=== PATIENT | female | born 1980 | race Two or more races ===

== ENCOUNTER 2023-04-22 20:55 | Emergency (ER) | payer OTHER ==
--- NOTE | 2023-04-22 21:46 | ED Physician Documentation ---
PD HPI FEMALE - Stated complaint Stated Complaint: GI - Chief complaint Chief Complaint: Abd Pain - History obtained from History obtained from: Patient - History of Present Illness Timing - onset: Today Timing - duration: Days (1) Timing - details: Gradual onset Pain level max: 3 Pain level max: 3 Associated symptoms: Dysuria, Urinary frequency. No: Abdominal pain, Vaginal bleeding, Vaginal discharge - Additional information Additional information: Patient is a 43-year-old female who complains of dysuria and urinary frequency starting today. No vaginal bleeding or discharge. No abdominal pain. Does have some slight low back pain. Worse with urination, nothing makes it better. Has had similar symptoms previously and diagnosed with UTI. No blood in the urine. No upper back kidney or flank pain. Denies any possibility of . Review of Systems Constitutional: denies: Fever GI: denies: Vomiting, Diarrhea : reports: Dysuria, Frequency, Hesitancy. denies: Now EGA Skin: denies: Rash PD PAST MEDICAL HISTORY - Past Medical History Past Medical History: No - Past Surgical History Past Surgical History: No - Present Medications Home Medications: Ambulatory Orders Medication Instructions Recorded Confirmed Chlorhexidine Gluconate [Hibiclens] 10 ml TP DAILY #473 ml 01/07/15 Hydrocodone/Acetaminophen [[place] 1 each PO Q6H PRN #20 tablet 01/07/15 5-325 Tablet] Sulfamethoxazole/Trimethoprim 1 each PO BID #14 tablet 01/07/15 [Bactrim Ds Tablet] Nitrofurantoin [Macrobid] 100 mg PO BID #10 cap 04/22/23 Phenazopyridine HCl [Pyridium] 200 mg PO TID PRN #6 tablet 04/22/23 - Allergies Allergies/Adverse Reactions: Allergies Allergy/AdvReac Type Severity Reaction Status Date / Time No Known Drug Allergies Allergy Verified 01/07/15 17:52 - Living Situation Living Situation: reports: With family Living Arrangement: reports: At home - Social History Does the pt smoke?: No Smoking Status: Never smoker Does the pt drink ETOH?: Yes Does the pt have substance abuse?: No PD ED PE NORMAL - Vitals Vital signs reviewed: Yes - General General: Alert and oriented X 3, No acute distress - HEENT HEENT: Moist mucous membranes - Neck Neck: Supple, no meningeal sign - Respiratory Respiratory: No respiratory distress - Abdomen Abdomen: Soft, Non tender, Non distended - Back Back: No CVA TTP - Derm Derm: Warm and dry - Neuro Neuro: Alert and oriented X 3 - Psych Psych: Normal mood, Normal affect Results - Vitals Vitals: Vital Signs - 24 hr 04/22/23 04/22/23 04/22/23 21:00 21:22 22:21 Temperature 35.8 C L 36.6 C Heart Rate 69 69 68 Respiratory 16 16 16 Rate Blood Pressure 125/85 H 125/85 H 122/84 H O2 Saturation 99 100 100 Oxygen O2 Source Room air - Labs Labs: Laboratory Tests 04/22/23 21:34 Urine Color YELLOW Urine Clarity CLEAR Urine pH 6.0 Ur Specific [place] 1.020 Urine Protein NEGATIVE Urine Glucose (UA) NEGATIVE Urine Ketones NEGATIVE Urine Occult Blood NEGATIVE Urine Nitrite NEGATIVE Urine Bilirubin NEGATIVE Urine Urobilinogen 0.2 (NORMAL) Ur Leukocyte Esterase TRACE H Urine RBC 0-5 Urine WBC 6-10 H Ur Squamous Epith Cells FEW Squamous Urine Bacteria Rare Ur Microscopic Review INDICATED Urine Culture Comments INDICATED Urine HCG, Qual NEGATIVE PD Medical Decision Making - ED course Complexity details: reviewed results, considered differential, d/w patient ED course: 43-year-old female with what appears to be a UTI. Will place on Macrobid and Pyridium. No evidence of pyelonephritis, sepsis. Patient is very well- appearing, nontoxic. Afebrile. Tolerating p.o. without difficulty. Patient counseled regarding signs and symptoms for which I believe and urgent re- evaluation would be necessary. Patient with good understanding of and agreement to plan and is comfortable going home at this time This document was made in part using voice recognition software. While efforts are made to proofread this document, sound alike and grammatical errors may occur. Departure - Departure Disposition: Home, Self Care Clinical Impression: UTI (urinary tract infection) Qualifiers: Urinary tract infection type: acute cystitis Hematuria presence: without hematuria Qualified Code(s): N30.00 - Acute cystitis without hematuria Condition: Good Instructions: ED UTI Cystitis Female Follow-Up: your,doctor as needed [Other] Prescriptions: Nitrofurantoin [Macrobid] 100 mg PO BID #10 cap Phenazopyridine HCl [Pyridium] 200 mg PO TID PRN #6 tablet PRN Reason: dysuria Comments: [facility] [place]. Please take all antibiotics until gone. Please return if you worsen. Forms: PCP List
[2023-04-22 21:51] LABS: BILIRUBIN,URINE NEGATIVE (NEGATIVE); GLUCOSE, URINE (UA) NEGATIVE (NEGATIVE); KETONES,URINE (UA) NEGATIVE (NEGATIVE); LEUKOCYTE ESTERASE, URINE TRACE (NEGATIVE); NITRITE,URINE NEGATIVE (NEGATIVE); OCCULT BLOOD,URINE NEGATIVE (NEGATIVE); PROTEIN,URINE NEGATIVE (NEGATIVE); UROBILINOGEN,URINE 0.2 (NORMAL) E.U./dL (NORMAL)
[2023-04-22 21:52] LABS: CLARITY,URINE CLEAR (CLEAR); HCG UR QUAL NEGATIVE
[2023-04-22] MEDS ORDERED: NITROFURANTOIN MACRO 100 MG CAPSULE PO STA (21:56)
[2023-04-22] MEDS ORDERED: PHENAZOPYRIDINE 100 MG TABLET PO STA (21:56)
[2023-04-22 22:01] LABS: BACTERIA,URINE Rare /HPF (None Seen); RBC,URINE 0-5 /HPF (0-5); SQUAMOUS EPITHELIAL CELL,UR FEW Squamous (<= Few)
[2023-04-22 22:24] VITALS: BP 122/84; O2SAT 100
== END 2023-04-22 22:20 | disposition home or self-care (01) ==
LOC: ED 20:55
DX: N30.00 Acute cystitis without hematuria (principal)
CPT/HCPCS: 81001; 81025; 87086; 87181; 99283; A9270; 81003

== ENCOUNTER 2023-08-08 09:31 | Emergency (ER) | payer OTHER ==
[2023-08-08 09:41] VITALS: BP 129/80; O2SAT 100
--- NOTE | 2023-08-08 10:13 | ED Physician Documentation ---
PD HPI SKIN - Stated complaint Stated Complaint: POSS ALLERGIC RX - Chief complaint Chief Complaint: Allergic Rx - History obtained from History obtained from: Patient - Additional information Additional information: Patient is a 43-year-old female presenting for evaluation of rash to her face which has been present since when she woke up. She did use a new face serum on Tuesday. She has itchiness to the area. She has been using Benadryl and Zyrtec daily.She does wear make-up to the face but denies new make-up. No rash noted elsewhere. Denies difficulty breathing. Review of Systems Constitutional: denies: Fever Cardiac: denies: Chest pain / pressure Respiratory: denies: Dyspnea Skin: reports: Rash PD PAST MEDICAL HISTORY - Past Medical History Past Medical History: No - Past Surgical History Past Surgical History: No - Present Medications Home Medications: Ambulatory Orders Medication Instructions Recorded Confirmed Chlorhexidine Gluconate [Hibiclens] 10 ml TP DAILY #473 ml 01/07/15 Hydrocodone/Acetaminophen [[place] 1 each PO Q6H PRN #20 tablet 01/07/15 5-325 Tablet] Sulfamethoxazole/Trimethoprim 1 each PO BID #14 tablet 01/07/15 [Bactrim Ds Tablet] Nitrofurantoin [Macrobid] 100 mg PO BID #10 cap 04/22/23 Phenazopyridine HCl [Pyridium] 200 mg PO TID PRN #6 tablet 04/22/23 predniSONE [Deltasone] 60 mg PO DAILY 5 Days #15 tablet 08/08/23 - Allergies Allergies/Adverse Reactions: Allergies Allergy/AdvReac Type Severity Reaction Status Date / Time No Known Drug Allergies Allergy Verified 08/08/23 09:37 - Social History Does the pt smoke?: No Smoking Status: Never smoker Does the pt drink ETOH?: Yes Does the pt have substance abuse?: No - POLST Patient has POLST: No PD ED PE NORMAL - General General: Alert and oriented X 3, No acute distress, Well developed/nourished - HEENT HEENT: Atraumatic, PERRL, EOMI, Pharynx benign - Neck Neck: Supple, no meningeal sign - Cardiac Cardiac: RRR - Respiratory Respiratory: No respiratory distress, Clear bilaterally - Derm Derm: Other (Raised scaly erythema to bilateral periorbital regions as well as to forehead and down cheeks) Results - Vitals Vitals: Vital Signs - 24 hr 08/08/23 09:35 Temperature 36.4 C L Heart Rate 75 Respiratory 20 Rate Blood Pressure 129/80 O2 Saturation 100 Oxygen O2 Source Room air PD Medical Decision Making - ED course ED course: Patient evaluated for rash to the face that appears to be a contact dermatitis likely related to new face serum. She has been using antihistamines without significant improvement.Given areas around her eyes I would be hesitant to have her use topical hydrocortisone to these areas so we will trial a short course of p.o. prednisone.Will continue with antihistamines. Patient counseled to avoid this new face serum. She already uses Gentle cleanser and lotion from [employer]. Patient advised on concerning symptoms to return for. Departure - Departure Disposition: 01 Home, Self Care Clinical Impression: Allergic dermatitis Condition: Stable Instructions: ED Dermatitis Contact Prescriptions: predniSONE [Deltasone] 60 mg PO DAILY 5 Days #15 tablet Comments: Your rash appears to be from an allergic reaction. This is likely due to a chemical or product coming into contact with your skin such as the new serum you tried a few nights ago. Please do not use this serum again. I would recommend continuing with the Zyrtec daily as well as Benadryl at night for itching. I have also sent a prescription for short course of prednisone to [facility] in [place]. Return to the emergency department if you develop any worsening symptoms such as signs of infection, worsening rash, changes to vision. Forms: PCP List Discharge Date/Time: 08/08/23 10:26
== END 2023-08-08 10:26 | disposition home or self-care (01) ==
LOC: ED 09:31
DX: L23.9 Allergic contact dermatitis, unspecified cause (principal)
CPT/HCPCS: 99282; 99283

== ENCOUNTER 2023-10-07 21:09 | Emergency (ER) | payer OTHER ==
[2023-10-07 21:42] VITALS: BP 102/67; O2SAT 98
--- NOTE | 2023-10-07 22:27 | ED Physician Documentation ---
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 Denies fever, nausea vomiting, abdominal pain chest pain shortness of breath. PD PAST MEDICAL HISTORY - Past Surgical History Past Surgical History: No - Present Medications Home Medications: Ambulatory Orders Medication Instructions Recorded Confirmed Chlorhexidine Gluconate [Hibiclens] 10 ml TP DAILY #473 ml 01/07/15 Hydrocodone/Acetaminophen [[place] 1 each PO Q6H PRN #20 tablet 01/07/15 5-325 Tablet] Sulfamethoxazole/Trimethoprim 1 each PO BID #14 tablet 01/07/15 [Bactrim Ds Tablet] Nitrofurantoin [Macrobid] 100 mg PO BID #10 cap 04/22/23 Phenazopyridine HCl [Pyridium] 200 mg PO TID PRN #6 tablet 04/22/23 predniSONE [Deltasone] 60 mg PO DAILY 5 Days #15 tablet 08/08/23 predniSONE [Prednisone 21-TAB dose 60 mg PO QDAC 6 Days #21 tab 10/07/23 pack] - Allergies Allergies/Adverse Reactions: Allergies Allergy/AdvReac Type Severity Reaction Status Date / Time No Known Drug Allergies Allergy Verified 10/07/23 21:24 - Social History Does the pt smoke?: No Smoking Status: Never smoker Does the pt drink ETOH?: Yes Does the pt have substance abuse?: No - POLST Patient has POLST: No PD ED PE NORMAL - Vitals Vital signs reviewed: Yes - General General: Alert and oriented X 3, No acute distress, Well developed/nourished - HEENT HEENT: Atraumatic, PERRL, EOMI, Moist mucous membranes, Pharynx benign, Other (Eczematous rash to periorbital area.) - Neck Neck: Supple, no meningeal sign - Cardiac Cardiac: RRR - Respiratory Respiratory: No respiratory distress, Clear bilaterally - Abdomen Abdomen: Non tender, Non distended Results - Vitals Vitals: Vital Signs - 24 hr 07/05/24 21:24 Temperature 36.4 C L Heart Rate 89 Respiratory 16 Rate Blood Pressure 102/67 O2 Saturation 98 Oxygen O2 Source Room air PD Medical Decision Making - ED course ED course: 43-year-old woman presents with allergic reaction, treated with Benadryl and steroids and prescription sent to pharmacy. Plan to follow-up outpatient with primary care provider for referral to allergy and immunology. Return precautions given. Departure - Departure Disposition: 01 Home, Self Care Clinical Impression: Allergic reaction Condition: Stable Instructions: ED Allergic Reaction General Other Prescriptions: predniSONE [Prednisone 21-TAB dose pack] 60 mg PO QDAC 6 Days #21 tab Comments: You were seen in the emergency department for medical evaluation. Steroids sent to [facility]. Please follow-up with your primary care provider and return to the emergency department if you have any new or worsening symptoms or other concerns.
[2023-10-07] MEDS: diphenhydrAMINE 25 MG CAPSULE PO STA (22:29)
[2023-10-07] MEDS: CHERRY SYRUP 10 ML UDC PO ONE (22:29)
[2023-10-07] MEDS: DEXAMETHASONE 10 MG/ML VIAL PO STA (22:29)
== END 2023-10-07 22:42 | disposition home or self-care (01) ==
LOC: ED 21:09
DX: T78.40XA Allergy, unspecified, initial encounter (principal); R51.9 Headache, unspecified; J02.9 Acute pharyngitis, unspecified; R21 Rash and other nonspecific skin eruption; H93.8X3 Other specified disorders of ear, bilateral; L29.8 Other pruritus
CPT/HCPCS: 99283; A9270

== ENCOUNTER 2023-11-21 20:20 | Emergency (ER) | payer OTHER ==
--- NOTE | 2023-11-21 20:47 | ED Physician Documentation ---
History of Present Illness - Stated complaint Stated Complaint: ALLERGIC REACTION - Chief complaint Chief Complaint: Allergic Rx - History obtained from History obtained from: Patient - Additonal information Additional information: Patient is a 43-year-old female presenting to the emergency department with swelling around the bilateral eyes. Patient notes symptoms started on Tuesday and have been persistent till today. She notes it is worse in the morning and improves at night. Patient took Benadryl earlier with no significant relief. Patient notes similar episode happened about a month ago and she came to the emergency department was started on steroid taper and finished this. She notes symptoms improved and she saw her PCP who gave her a referral to an medical record specialist that she has been unable to follow-up with at this time. Patient previously was taking Zyrtec daily but has stopped taking this medication. She notes no acute allergies no new face washes no new detergents. She denies any significant pruritus around her eyes no discharge or redness. No vision changes. She denies any rash or hives associated with symptoms. She denies any history of allergies. She has not taken any new medications. 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 - Present Medications Home Medications: Ambulatory Orders Medication Instructions Recorded Confirmed Chlorhexidine Gluconate [Hibiclens] 10 ml TP DAILY #473 ml 01/07/15 Hydrocodone/Acetaminophen [[place] 1 each PO Q6H PRN #20 tablet 01/07/15 5-325 Tablet] Sulfamethoxazole/Trimethoprim 1 each PO BID #14 tablet 01/07/15 [Bactrim Ds Tablet] Nitrofurantoin [Macrobid] 100 mg PO BID #10 cap 04/22/23 Phenazopyridine HCl [Pyridium] 200 mg PO TID PRN #6 tablet 04/22/23 predniSONE [Deltasone] 60 mg PO DAILY 5 Days #15 tablet 08/08/23 predniSONE [Prednisone 21-TAB dose 60 mg PO QDAC 6 Days #21 tab 10/07/23 pack] EPINEPHrine [Epinephrine] 0.3 mg IJ ONCE PRN #2 each 11/21/23 Famotidine [Pepcid] 20 mg PO BID #60 tablet 11/21/23 Loratadine/Pseudoephedrine 1 each PO DAILY 30 Days #30 tab 11/21/23 [Claritin-D 24 Hour Tablet] predniSONE [Deltasone] 20 mg PO [id number] #21 tab 11/21/23 - Allergies Allergies/Adverse Reactions: Allergies Allergy/AdvReac Type Severity Reaction Status Date / Time No Known Drug Allergies Allergy Verified 11/21/23 20:29 - Social History Does the pt smoke?: No Smoking Status: Never smoker Does the pt drink ETOH?: Yes Does the pt have substance abuse?: No - POLST Patient has POLST: No PD ED PE NORMAL - Vitals Vital signs reviewed: Yes - General General: Alert and oriented X 3 - HEENT HEENT: Atraumatic, PERRL, EOMI, Pharynx benign (Clear oropharynx no tongue swelling or lip swelling noted.), Other (periorbital erythema noted around bilateral eyes on examination. ) - Neck Neck: Supple, no meningeal sign, No adenopathy, Other - Cardiac Cardiac: RRR, No murmur, No gallop, No rub - Respiratory Respiratory: No respiratory distress, Clear bilaterally, Other (No appreciable stridor or wheezing on auscultation of the lungs.) - Abdomen Abdomen: Normal bowel sounds - Derm Derm: Other (No appreciable hives.) Results - Vitals Vitals: Vital Signs - 24 hr 11/21/23 20:22 Temperature 37.2 C Heart Rate 96 Respiratory 16 Rate Blood Pressure 116/75 O2 Saturation 97 Oxygen O2 Source Room air PD Medical Decision Making - ED course Complexity details: reviewed old records, reviewed results ED course: Patient is a 43-year-old female presents with allergic reaction patient was here for similar symptoms about a month ago. Patient was started on steroids at this time and symptoms resolved. She is to see an hand sample maker specialist but has been unable to follow-up. She notes no hives no pruritus she notes mild erythema around bilateral eyes she took a Benadryl today and swelling seems to h ave improved. Patient has no history of allergies and unsure of what caused the symptoms. Patient denies any tongue or lip swelling no difficulty breathing or shortness of breath. Vital stable on arrival. Physical exam shows extra ocular muscles intact. Erythema noted around periorbital region of both eyes pupils are equal round reactive to light and accommodation. No appreciable hives no appreciable pruritus on examination. Departure - Departure Disposition: 01 Home, Self Care Clinical Impression: Allergic reaction, Skin irritation, Periorbital erythema Condition: Good Instructions: ED Allergic Reaction General Other Comments: You were seen here in the emergency department for your redness around bilateral eyes symptoms most likely secondary to allergic reaction you should take medications sent to your pharmacy as prescribed follow-up with hand sample maker as intended return with any difficulty breathing lip swelling tongue swelling or shortness of breath.
[2023-11-21] MEDS: diphenhydrAMINE 25 MG CAPSULE PO STA (20:58)
[2023-11-21] MEDS: FAMOTIDINE 20 MG TABLET PO STA (20:58)
[2023-11-21] MEDS: predniSONE 20 MG TABLET PO STA (20:58)
[2023-11-21 21:03] VITALS: BP 116/72; O2SAT 98
== END 2023-11-21 21:01 | disposition home or self-care (01) ==
LOC: ED 20:20
DX: T78.40XA Allergy, unspecified, initial encounter (principal); X58.XXXA Exposure to other specified factors, initial encounter
CPT/HCPCS: 99283; A9270; J7512